=== PATIENT | male | born 1960 ===

== ENCOUNTER 2018-10-10 07:24 | Emergency (ER) | payer MEDICAID ==
[2018-10-10 07:59] VITALS: RESP 18; O2SAT 98
[2018-10-10] MEDS ORDERED: Lidocaine 1%/Epinephrine 1:100000 30 ml vial IJ STA (08:17)
--- NOTE | 2018-10-10 09:05 | ED PDOC ---
Arrival/HPI - General Historian: Patient - History of Present Illness Narrative History of Present Illness (Text): 10/10/18 09:02 Patient is a 58-year-old male with PMHx of HTN, CHF, DM2, IV drug use, and Hep C presenting to ED s/p fall in the middle of the night. He reports waking up to go to the bathroom and falling and hitting his head on a table. He then reports falling again in the bathroom. He fell a third time in his bedroom after "falling asleep standing up." He denies any preceding symptoms of headache, dizziness, lightheadedness. He reports good appetite and taking all his medications as prescribed the day prior. He reports drinking less water over the past couple of days. Patient denies slurred speech, facial drooping, numbness, tingling, or focal weakness. He denies loss of consciousness. He denies prior history of falls. <Reuben Sheldon - Last Filed: 10/10/18 09:50> <Royce Jones - Last Filed: 10/10/18 14:51> - General Chief Complaint: Trauma Time Seen by Provider: 10/10/18 07:41 Past Medical History - Infectious Disease Hx of Infectious Diseases: None - Cardiac Hx Cardiac Disorders: Yes Hx Hypertension: Yes - Endocrine/Metabolic Hx Diabetes Mellitus Type 2: Yes - Hematological/Oncological Hx Hepatitis B: Yes - Psychiatric Hx Psychophysiologic Disorder: No Hx Substance Use: Yes - Surgical History Other/Comment: multiple scars to bilat arms - Anesthesia Hx Anesthesia: No Hx Anesthesia Reactions: Yes <Reuben Sheldon - Last Filed: 10/10/18 09:50> - Provider Review Nursing Documentation Reviewed: Yes <Royce Jones - Last Filed: 10/10/18 14:51> Family/Social History Narrative Family History (Free Text): 10/10/18 09:06 dad - HTN mom - cancer, HLD, DM Smoking Status: Light Smoker < 10 Cigarettes Daily Hx Alcohol Use: No Hx Substance Use: Yes Substance used: iv drug abuse <Reuben Sheldon - Last Filed: 10/10/18 09:50> - Physician Review Nursing Documentation Reviewed: Yes Family/Social History: Unknown Family HX <Royce Jones - Last Filed: 10/10/18 14:51> Allergies/Home Meds <Reuben Sheldon - Last Filed: 10/10/18 09:50> <Royce Jones - Last Filed: 10/10/18 14:51> Allergies/Adverse Reactions: Allergies No Known Allergies Allergy (Verified 10/10/18 12:20) Home Medications: Home Meds Medication Instructions Recorded Confirmed Aspirin 81 mg PO DAILY 08/05/17 05/05/18 GlipiZIDE [Glucotrol] 10 mg PO DAILY 08/05/17 05/05/18 Methadone [Methadose] 40 mg PO DAILY 08/05/17 05/05/18 Terazosin [Hytrin] 5 mg PO DAILY 08/05/17 05/05/18 Ibuprofen [Motrin Tab] 800 mg PO TID PRN 04/27/18 05/05/18 Metoprolol Tartrate 50 mg PO BID 05/05/18 05/05/18 Review of Systems - Review of Systems Constitutional: absent: Fatigue, Fevers Eyes: absent: Vision Changes Respiratory: absent: SOB Cardiovascular: absent: Chest Pain Gastrointestinal: absent: Abdominal Pain, Nausea, Vomiting, Food Intolerance Genitourinary Male: absent: Dysuria Neurological: absent: Headache, Dizziness, Focal Weakness, Speech Changes, Facial Droop Endocrine: absent: Diaphoresis <Reuben Sheldon - Last Filed: 10/10/18 09:50> - Physician Review All systems were reviewed & negative as marked: Yes <Royce Jones - Last Filed: 10/10/18 14:51> Physical Exam Vital Signs Temp Pulse Resp BP Pulse Ox 10/10/18 07:45 98.6 F 72 18 198/104 H 98 10/10/18 07:24 98.6 F 72 18 198/104 H 98 Finger Stick Blood Glucose: 129 - Systems Exam Head: Present: Laceration, Other (5cm laceration with minimal bleeding) Pupils: Present: PERRL Extroacular Muscles: Present: EOMI Conjunctiva: Present: Normal Mouth: Present: Moist Mucous Membranes Respiratory/Chest: Present: Clear to Auscultation. No: Accessory Muscle Use, Wheezes, Rales, Rhonchi Cardiovascular: Present: Regular Rate and Rhythm, Normal S1, S2. No: Murmurs, Rub, Gallop Abdomen: Present: Normal Bowel Sounds. No: Tenderness, Distention Upper Extremity: Present: Normal Inspection, Normal ROM, Neurovascularly Intact, Norm 2-Pt Discrimination Lower Extremity: Present: Normal Inspection, Normal ROM, Neurovascularly Intact Neurological: Present: GCS=15, CN II-XII Intact, Speech Normal, Normal Sensory Function Psychiatric: Present: Alert, Oriented x 3 <Reuben Sheldon - Last Filed: 10/10/18 09:50> Vital Signs Reviewed: Yes Vital Signs Temp Pulse Resp BP Pulse Ox 10/10/18 07:45 98.6 F 72 18 198/104 H 98 10/10/18 07:24 98.6 F 72 18 198/104 H 98 Temperature: Afebrile Blood Pressure: Hypertensive Pulse: Regular Respiratory Rate: Normal Appearance: Positive for: Well-Appearing, Non-Toxic, Comfortable Pain Distress: None Mental Status: Positive for: Alert and Oriented X 3 <Royce Jones - Last Filed: 10/10/18 14:51> Medical Decision Making ED Course and Treatment: 10/10/18 09:45 Jessica were placed for posterior scalp laceration. CT head negative for acute intracranial pathology. Patient to be discharged to home with instructions to follow up with PMD. - RAD Interpretation Radiology Orders: 10/10/18 08:07 HEAD W/O CONTRAST [CT] Stat - Medication Orders Current Medication Orders: Discontinued Medications Lidocaine/Epinephrine (Lidocaine 1%/Epinephrine 1:347041 30 Ml) 5 ml IJ STAT STA Stop: 10/10/18 08:18 Last Admin: 10/10/18 08:25 Dose: 5 ml - Procedure PROCEDURE NOTE (Text): 10/10/18 09:43 Laceration repair with staple placement. Area was cleaned with provodine. 1% Lidocaine with Epinephrine was used to locally anesthetize the area. 12 jessica were placed. There was minimal bleeding. Patient tolerated procedure well. <Reuben Sheldon - Last Filed: 10/10/18 09:50> ED Course and Treatment: 10/10/18 08:07 In agreement with resident note which contains more details about the patient. Patient seen and evaluated with resident. Came up with plan and treatment together. 58 year old male presents to the ED for evaluation of posterior head laceration sustained s/p mechanical fall at home. Plan: -- CT Head -- Laceration repair with jessica 10/10/18 14:50 pt seen with resident. s/p falls. head ct neg. jessica appleid. pt insists all falls mechanical. no complaints at this itme. specifically requests head ct, no labs and discharge. neuro intact steady gait states will return with worsening. - RAD Interpretation Radiology Orders: 10/10/18 08:07 HEAD W/O CONTRAST [CT] Stat - Medication Orders Current Medication Orders: Discontinued Medications Lidocaine/Epinephrine (Lidocaine 1%/Epinephrine 1:222338 30 Ml) 5 ml IJ STAT STA Stop: 10/10/18 08:18 Last Admin: 10/10/18 08:25 Dose: 5 ml <Royce Jones - Last Filed: 10/10/18 14:51> - PA / SECURITY GUARD SUPERVISOR / Resident Statement / has reviewed & agrees with the documentation as recorded. MD/ has examined the patient and agrees with the treatment plan. - Scribe Statement The provider has reviewed the documentation as recorded by the Scribe Lamar Moscoso. All medical record entries made by the Scribe were at my direction and personally dictated by me. I have reviewed the chart and agree that the record accurately reflects my personal performance of the history, physical exam, medical decision making, and the department course for this patient. I have also personally directed, reviewed, and agree with the discharge instructions and disposition. <Royce Jones - Last Filed: 10/10/18 14:51> Disposition/Present on Arrival - Present on Arrival Any Indicators Present on Arrival: No History of DVT/PE: No History of Uncontrolled Diabetes: No Urinary Catheter: No History of Decub. Ulcer: No History Surgical Site Infection Following: None - Disposition Have Diagnosis and Disposition been Completed?: Yes Disposition Time: 09:49 <Reuben Sheldon - Last Filed: 10/10/18 09:50> <Royce Jones - Last Filed: 10/10/18 14:51> - Disposition Diagnosis: Laceration, Head injury, Fall Disposition: HOME/ ROUTINE Condition: IMPROVED Discharge Instructions (ExitCare): Laceration Repair, Closed Head Injury, Laceration Repair With Jessica (DC), Head Injury Observation (DC) Additional Instructions: Please return in 1 week for removal of the jessica. Referrals: [facility] [Outside] - Follow up with primary [facility] [Outside] - Follow up with primary Forms: [employer] (Senegalese), WORK NOTE
--- NOTE | 2018-10-10 09:24 | CT ---
Date of service: 10/10/2018 PROCEDURE: CT HEAD WITHOUT CONTRAST. HISTORY: s/p fall COMPARISON: None available. TECHNIQUE: Axial computed tomography images were obtained through the head/brain without intravenous contrast. Radiation dose: Total exam DLP = 893.35 mGy-cm. This CT exam was performed using one or more of the following dose reduction techniques: Automated exposure control, adjustment of the mA and/or kV according to patient size, and/or use of iterative reconstruction technique. FINDINGS: HEMORRHAGE: No intracranial hemorrhage. BRAIN: No mass effect or edema. Chronic microvascular changes are seen in the periventricular white matter. There encephalomalacia in the right parietal lobe. VENTRICLES: Unremarkable. No hydrocephalus. CALVARIUM: Unremarkable. PARANASAL SINUSES: Unremarkable as visualized. No significant inflammatory changes. MASTOID AIR CELLS: Unremarkable as visualized. No inflammatory changes. OTHER FINDINGS: None. IMPRESSION: No acute intracranial findings
[2018-10-10 09:55] VITALS: BP 178/86; PULSE 73; TEMP 98.2
== END 2018-10-10 09:57 | disposition home or self-care (01) ==
LOC: ED 07:24 → MERGE 07:24 → ED 09:57
DX: S01.01XA Laceration without foreign body of scalp, initial encounter (principal); W19.XXXA Unspecified fall, initial encounter; E11.9 Type 2 diabetes mellitus without complications; I50.9 Heart failure, unspecified; I10 Essential (primary) hypertension; B19.20 Unspecified viral hepatitis C without hepatic coma; F17.210 Nicotine dependence, cigarettes, uncomplicated; Z82.49 Family history of ischemic heart disease and other diseases of the circulatory system; Z83.3 Family history of diabetes mellitus

== ENCOUNTER 2018-10-20 12:33 | Emergency (ER) | payer MEDICAID ==
[2018-10-20 12:46] VITALS: BMI 30.7
[2018-10-20 12:52] VITALS: PULSE 67; RESP 18; TEMP 98.3; O2SAT 96
[2018-10-20 14:27] VITALS: BP 189/102
--- NOTE | 2018-10-20 14:43 | ED PDOC ---
Arrival/HPI - General Chief Complaint: Suture/Staple Removal Time Seen by Provider: 10/20/18 12:36 Historian: Patient - History of Present Illness Narrative History of Present Illness (Text): 10/20/18 14:53 58 year old male, with a past medical history of hypertension, who presents to the emergency department with staple removal to the scalp. Patient reports falling and LOC 10 days ago. Patient reports compliance with his medication and states he took 2 instead of 3 because he ran out. Patient reports he does not remember the name of the medication. He denies any fevers, headaches, dizziness, abdominal pain, SOB, chest pain, or any other complaints. Symptom Onset: Gradual Symptom Course: Unchanged Activities at Onset: Light Context: Home Past Medical History - Provider Review Nursing Documentation Reviewed: Yes - Infectious Disease Hx of Infectious Diseases: None - Cardiac Hx Cardiac Disorders: Yes Hx Hypertension: Yes - Pulmonary Hx Chronic Obstructive Pulmonary Disease (COPD): Yes Hx Pneumonia: Yes - Neurological Hx Neurological Disorder: No - HEENT Hx HEENT Disorder: No - Renal Hx Renal Disorder: No - Endocrine/Metabolic Hx Diabetes Mellitus Type 2: Yes - Hematological/Oncological Hx Hepatitis B: Yes - Integumentary Hx Dermatological Disorder: No - Musculoskeletal/Rheumatological Hx Musculoskeletal Disorders: No Hx Falls: No - Gastrointestinal Hx Gastrointestinal Disorders: Yes Hx Nausea: Yes - Genitourinary/Gynecological Hx Genitourinary Disorders: No - Psychiatric Hx Psychophysiologic Disorder: Yes Hx Substance Use: Yes (heroin) - Surgical History Other/Comment: multiple scars to bilat arms - Anesthesia Hx Anesthesia Reactions: No Family/Social History - Physician Review Nursing Documentation Reviewed: Yes Family/Social History: Unknown Family HX Smoking Status: Current Some Days Smoker Hx Alcohol Use: No Hx Substance Use: Yes (heroin) Substance used: heroin Allergies/Home Meds Allergies/Adverse Reactions: Allergies No Known Allergies Allergy (Verified 10/10/18 12:20) Home Medications: Home Meds Medication Instructions Recorded Confirmed Aspirin 81 mg PO DAILY 08/05/17 10/20/18 GlipiZIDE [Glucotrol] 10 mg PO DAILY 08/05/17 10/20/18 Methadone [Methadose] 40 mg PO DAILY 08/05/17 10/20/18 Terazosin [Hytrin] 5 mg PO DAILY 08/05/17 10/20/18 Ibuprofen [Motrin Tab] 800 mg PO TID PRN 04/27/18 10/20/18 Metoprolol Tartrate 50 mg PO BID 05/05/18 10/20/18 Review of Systems - Review of Systems Constitutional: absent: Fevers Respiratory: absent: SOB, Cough Cardiovascular: absent: Chest Pain Gastrointestinal: absent: Abdominal Pain Musculoskeletal: absent: Back Pain, Neck Pain Neurological: absent: Headache, Dizziness Physical Exam Vital Signs Reviewed: Yes Vital Signs Temp Pulse Resp BP Pulse Ox 10/20/18 14:26 189/102 H 10/20/18 12:33 98.3 F 67 18 200/118 H 96 Temperature: Afebrile Blood Pressure: Hypertensive Pulse: Regular Respiratory Rate: Normal Appearance: Positive for: Well-Appearing, Non-Toxic, Comfortable Pain Distress: None Mental Status: Positive for: Alert and Oriented X 3 - Systems Exam Head: Present: Atraumatic, Normocephalic, Other (11 bruce noted to posterior scalp, no edema, no purulent discharge, ). No: Tenderness Pupils: Present: PERRL Extroacular Muscles: Present: EOMI Conjunctiva: Present: Normal Mouth: Present: Moist Mucous Membranes Neck: Present: Normal Range of Motion Respiratory/Chest: Present: Clear to Auscultation, Good Air Exchange. No: Respiratory Distress, Accessory Muscle Use Cardiovascular: Present: Regular Rate and Rhythm, Normal S1, S2. No: Murmurs Abdomen: No: Tenderness, Distention, Peritoneal Signs Back: Present: Normal Inspection Upper Extremity: Present: Normal Inspection. No: Cyanosis, Edema Lower Extremity: Present: Normal Inspection. No: Edema Neurological: Present: GCS=15, Speech Normal Skin: Present: Warm, Dry, Normal Color. No: Rashes Psychiatric: Present: Alert, Oriented x 3, Normal Insight, Normal Concentration Medical Decision Making ED Course and Treatment: 10/20/18 14:43 Impression: 58 year old male presents to the emergency department with staple removal to the scalp s/p fall 10 days ago. Plan: -- Review and reassess Prior Visits: Notes and results from previous visits were reviewed. Progress Notes: 10/20/18 14:43 I removed 11 bruce from the posterior scalp, no sign of infection. Patient was found to have an elevated blood pressure (200/118), advised to rest in the ER, will recycle blood pressure. Blood pressure was still elevated, told patient blood work was needed due to extreme blood pressure elevation and IV medications were needed. patient refused labs or further treatment. Few minutes later i was told by the nurse patient wanted to sign out AMA. When i was in the room to give have the patient sign the AMA paperwork, patient was not there. Pt left without treatment. IMpression; suture removal, Hypertension Left without completion of treatment. - PA / CAMPAIGN MARKETING SPECIALIST / Resident Statement MD/DO has reviewed & agrees with the documentation as recorded. MD/DO has examined the patient and agrees with the treatment plan. - Scribe Statement The provider has reviewed the documentation as recorded by the Liliana Contreras Provider Scribe Attestation: All medical record entries made by the Liliana were at my direction and personally dictated by me. I have reviewed the chart and agree that the record accurately reflects my personal performance of the history, physical exam, medical decision making, and the department course for this patient. I have also personally directed, reviewed, and agree with the discharge instructions and disposition. Disposition/Present on Arrival - Present on Arrival Any Indicators Present on Arrival: No History of DVT/PE: No History of Uncontrolled Diabetes: No Urinary Catheter: No History of Decub. Ulcer: No History Surgical Site Infection Following: None - Disposition Have Diagnosis and Disposition been Completed?: Yes Diagnosis: Visit for suture removal, Hypertension Disposition: LEFT W/O TREATMENT - ER ONLY Disposition Time: 14:39 Condition: UNKNOWN Referrals: PCP,NO [Primary Care Provider] - Follow up with primary Forms: [employer] (Thai)
== END 2018-10-20 14:30 | disposition left against medical advice (07) ==
LOC: ED 12:33
DX: S01.01XD Laceration without foreign body of scalp, subsequent encounter (principal); I10 Essential (primary) hypertension; E11.9 Type 2 diabetes mellitus without complications